=== PATIENT | female | born 1965 | race Caucasian/White ===

== ENCOUNTER 2016-11-02 14:36 | Inpatient (IN) | payer MEDICAID ==
[~2016-11-02] VITALS: Ht 160 cm; Wt 73.7 kg
[~2016-11-02 14:36] MED LIST: OLAN10TA3 PO; QUET200T PO
[2016-11-02] MEDS ORDERED: LORazepam 2 MG/ML VIAL ONE (14:48)
[2016-11-02 14:58] LABS: GLUCOSE,POINT OF CARE 230 MG/DL (70-110)
[2016-11-02] MEDS ORDERED: SODIUM CHLORIDE 0.9% 1,000 ML IV ONE ×3 (15:00→17:45)
[2016-11-02 15:14] LABS: BASOPHILS % (AUTO) 0.3 % (0.0-2.0); EOSINOPHILS % (AUTO) 0.4 % (1.0-6.0); HEMATOCRIT 28.4 % (36-46); HEMOGLOBIN 9.6 g/dL (12.0-16.0); LYMPHOCYTES # (AUTO) 0.4 K/uL (1.0-4.8); LYMPHOCYTES % (AUTO) 13.9 % (22.0-44.0); MEAN CORPUSCULAR HEMOGLOBIN 27.8 pg (26.0-34.0); MEAN CORPUSCULAR HGB CONC 33.6 G/dL (31.0-37.0); MEAN CORPUSCULAR VOLUME 83 fL (80-100); MONOCYTES # (AUTO) 0.2 K/uL (0.1-1.0); NEUTROPHILS # (AUTO) 2.3 K/uL (1.8-7.7); NEUTROPHILS % (AUTO) 78.4 % (40.0-70.0); RED BLOOD CELL COUNT(AUTO) 3.44 MIL/uL (4.00-5.20); RED CELL DISTRIBUTION WIDTH 19.4 % (11.5-14.5)
[2016-11-02] MEDS ORDERED: ONDANSETRON HCL 4 MG/2 ML VIAL IVP ONE (15:15)
[2016-11-02] MEDS ORDERED: LORazepam 2 MG/ML VIAL IVP ONE ×2 (15:15→15:45)
[2016-11-02 15:41] LABS: ANION GAP 17 mmol/L (8-16); CALCIUM, TOTAL 8.3 mg/dL (8.8-10.5); CARBON DIOXIDE 18 mmol/L (22-29); CHLORIDE 100 mmol/L (98-107); GLOMERULAR FILTR. RATE CALC 53 mL/min (>60); POTASSIUM 3.7 mmol/L (3.5-5.1); SODIUM SERUM 135 mmol/L (136-145); UREA NITROGEN, BLOOD 19 mg/dL (7-18)
[2016-11-02 15:42] LABS: PLATELET COUNT (AUTO) 33 K/uL (150-450); RBC MORPHOLOGY COMMENT ABNORMAL RBC MORPH
[2016-11-02 15:46] LABS: ALANINE AMINOTRANSFERASE 33 U/L (12-78); ALBUMIN 2.7 g/dL (3.4-5.0); ASPARTATE AMINOTRANSFERASE 72 U/L (15-37); BILIRUBIN,TOTAL 2.7 mg/dL (0.1-1.0); TOTAL PROTEIN, SERUM 9.7 g/dL (6.4-8.2)
[2016-11-02 16:08] LABS: SALICYLATE < 2.8 mg/dL (2.8-20.0)
[2016-11-02 16:18] LABS: ACETAMINOPHEN < 2 mcg/mL (10-30)
[2016-11-02] MEDS ORDERED: VANCOMYCIN HCL 1 GM/D5% WATER 200 ML IV ONE (16:45)
[2016-11-02 17:39] LABS: LACTIC ACID 7.7 mmol/L (0.4-2.0)
[2016-11-02] MEDS ORDERED: LACTULOSE 200 GM/300 ML RECTAL SOLUTION PR ONE (17:45)
[2016-11-02] MEDS ORDERED: ACETAMINOPHEN 650 MG/ISO-OSM 65 ML IV ONE (17:45)
[2016-11-02] MEDS ORDERED: ONDANSETRON HCL 4 MG/2 ML VIAL IVP PRN ×2 (18:45→21:00)
[2016-11-02] MEDS ORDERED: 0.9% SODIUM CHLORIDE 10 ML SYRINGE IVP PRN (18:45)
[2016-11-02] MEDS ORDERED: ACETAMINOPHEN 325 MG TABLET PO PRN ×2 (18:45→21:00)
[2016-11-02 18:54] LABS: REFLEX LACTIC ACID? YES YES
[2016-11-02] MEDS ORDERED: PIPERACILLIN/TAZO 3.375 GM/D5W 50 ML IV ONE (19:00)
[2016-11-02 19:10] LABS: CREATINE KINASE MB 5.1 ng/mL (0-5)
[2016-11-02 19:26] LABS: ABG A-A DIFF O2 463.5 mmHg (10-20.0); ABG BASE EXCESS -1.8 mmol/L (-2.0-3.0); ABG HCO3 23.1 mmol/L (22.0-26.0); ABG OXYHEMOGLOBIN 89.3 % (94.0-100.0); ABG PCO2 35 mmHg (35-45); TEMPERATURE, FAHRENHEIT, BG 98.7 FAHREN (96.0-98.6)
[2016-11-02 19:27] LABS: ALLEN TEST, BLOOD GAS Positive
[2016-11-02 20:00] VITALS: BP 141/82
[2016-11-02] MEDS ORDERED: SODIUM CHLORIDE 0.9% 250 ML IV ONE (20:39)
[2016-11-02] MEDS ORDERED: MAGNESIUM HYDROXIDE SUSPENSION 30 ML UDCUP PO PRN (21:00)
[2016-11-02] MEDS ORDERED: DEXTROSE 50%-WATER 25 GM/50 ML SYRINGE IVP PRN (21:00)
[2016-11-02] MEDS ORDERED: ALBUTEROL SULFATE 2.5 MG/0.5 ML NEB SOLUTION NEB PRN (21:00)
[2016-11-02] MEDS ORDERED: VANCOMYCIN HCL 1.5 GM in DEXTROSE 5%-WATER 250 ML IV ONE (21:15)
[2016-11-02] MEDS ORDERED: MAGNESIUM SULFATE 4 GM/WATER 100 ML IV PRN (21:15)
[2016-11-02] MEDS ORDERED: POTASSIUM CHLORIDE 20 MEQ ER TABLET PO PRN (21:15)
[2016-11-02] MEDS ORDERED: MAGNESIUM SULFATE 2 GM in DEXTROSE 5%-WATER 50 ML IV PRN (21:15)
[2016-11-02] MEDS ORDERED: MAGNESIUM OXIDE 400 MG TABLET PO PRN (21:15)
[2016-11-02] MEDS ORDERED: VANCOMYCIN HCL 500 MG in DEXTROSE 5%-WATER 100 ML IV ONE (21:30)
[2016-11-02 21:31] LABS: ALBUMIN 2.2 g/dL (3.4-5.0); MAGNESIUM 1.5 mg/dL (1.80-2.40)
[2016-11-02 23:07] LABS: INR 1.7 (0.9-1.1); PROTHROMBIN TIME 18.1 SEC (9.4-11.6)
[2016-11-03] VITALS: BP 120/72
[2016-11-03] MEDS: LACTULOSE 200 GM/300 ML RECTAL SOLUTION PR SCH ×3 (01:53→17:18)
[2016-11-03] MEDS: PIPERACILLIN/TAZO 3.375 GM/D5W 50 ML IV SCH ×4 (01:53→17:19)
[2016-11-03 04:00] VITALS: BP 112/63
[2016-11-03 05:10] LABS: EOSINOPHILS % (AUTO) 0.8 % (1.0-6.0); HEMATOCRIT 23.4 % (36-46); HEMOGLOBIN 7.9 g/dL (12.0-16.0); LYMPHOCYTES # (AUTO) 0.4 K/uL (1.0-4.8); LYMPHOCYTES % (AUTO) 15.5 % (22.0-44.0); MEAN CORPUSCULAR HEMOGLOBIN 28.2 pg (26.0-34.0); MEAN CORPUSCULAR HGB CONC 33.6 G/dL (31.0-37.0); MEAN CORPUSCULAR VOLUME 84 fL (80-100); MONOCYTES # (AUTO) 0.2 K/uL (0.1-1.0); MONOCYTES % (AUTO) 8.9 % (2.0-9.0); NEUTROPHILS # (AUTO) 1.7 K/uL (1.8-7.7); NEUTROPHILS % (AUTO) 74.8 % (40.0-70.0); PLATELET COUNT (AUTO) 27 K/uL (150-450); RED BLOOD CELL COUNT(AUTO) 2.79 MIL/uL (4.00-5.20); RED CELL DISTRIBUTION WIDTH 19.7 % (11.5-14.5); WHITE BLOOD COUNT (AUTO) 2.3 K/uL (4.5-11.0)
[2016-11-03 05:27] LABS: ALANINE AMINOTRANSFERASE 26 U/L (12-78); ALBUMIN 2.1 g/dL (3.4-5.0); ANION GAP 9 mmol/L (8-16); ASPARTATE AMINOTRANSFERASE 59 U/L (15-37); BILIRUBIN,TOTAL 2.5 mg/dL (0.1-1.0); CALCIUM, TOTAL 7.6 mg/dL (8.8-10.5); CARBON DIOXIDE 24 mmol/L (22-29); CHLORIDE 111 mmol/L (98-107); GLOMERULAR FILTR. RATE CALC > 60 mL/min (>60); INR 1.6 (0.9-1.1); POTASSIUM 3.2 mmol/L (3.5-5.1); PROTHROMBIN TIME 16.4 SEC (9.4-11.6); SODIUM SERUM 144 mmol/L (136-145); TOTAL PROTEIN, SERUM 7.6 g/dL (6.4-8.2); UREA NITROGEN, BLOOD 15 mg/dL (7-18)
[2016-11-03 05:31] LABS: HEMOGLOBIN A1C 7.7 % (4.5-6.2)
[2016-11-03 07:58] LABS: GLUCOSE,POINT OF CARE 85 MG/DL (70-110)
[2016-11-03 08:00] VITALS: BP 119/64
[2016-11-03 08:03] LABS: GLUCOSE,POINT OF CARE 125 MG/DL (70-110)
[2016-11-03 08:08] LABS: RBC MORPHOLOGY COMMENT ABNORMAL RBC MORPH
[2016-11-03] MEDS: VANCOMYCIN HCL 1.25 GM in DEXTROSE 5%-WATER 250 ML IV SCH ×2 (09:21→20:17)
[2016-11-03] MEDS: PANTOPRAZOLE SODIUM 40 MG/VIAL IVP SCH (09:22)
[2016-11-03] MEDS: POTASSIUM CHL 10 MEQ/WATER 50 ML IV PRN ×3 (09:24→10:34)
[2016-11-03] MEDS: INSULIN ASPART 100 UNITS/ML SQ PRN ×2 (11:45→17:30)
[2016-11-03 12:00] VITALS: BP 120/60
[2016-11-03 14:42] LABS: GLUCOSE,POINT OF CARE 112 MG/DL (70-110)
[2016-11-03 16:21] VITALS: BP 112/57
[2016-11-03] MEDS ORDERED: SODIUM CHLORIDE 0.9% IRRIG BTL 1,000 ML IRRIG ONE (16:22)
[2016-11-03 17:57] LABS: GLUCOSE COMMENT 1 Received Meds; GLUCOSE,POINT OF CARE 158 MG/DL (70-110)
[2016-11-03 20:03] VITALS: BP 117/65
[2016-11-04] VITALS (7 sets, daily range): BP systolic 99–122; BP diastolic 51–65
[2016-11-04] MEDS: PIPERACILLIN/TAZO 3.375 GM/D5W 50 ML IV SCH ×2 (00:03→06:00)
[2016-11-04] MEDS: LACTULOSE 200 GM/300 ML RECTAL SOLUTION PR SCH ×2 (00:03→08:00)
[2016-11-04 07:11] LABS: CALCIUM, TOTAL 7.2 mg/dL (8.8-10.5); CREATININE 1.02 mg/dL (0.60-1.30); POTASSIUM 3.5 mmol/L (3.5-5.1)
[2016-11-04 07:42] LABS: GLUCOSE,POINT OF CARE 143 MG/DL (70-110)
[2016-11-04] MEDS: PANTOPRAZOLE SODIUM 40 MG/VIAL IVP SCH (08:30)
[2016-11-04] MEDS: VANCOMYCIN HCL 1.25 GM in DEXTROSE 5%-WATER 250 ML IV SCH (09:35)
[2016-11-04 12:12] LABS: GLUCOSE,POINT OF CARE 134 MG/DL (70-110)
[2016-11-04] MEDS: LACTULOSE 20 GM/30 ML SOLUTION UDCUP PO SCH ×3 (12:17→23:11)
[2016-11-04 19:42] LABS: GLUCOSE,POINT OF CARE 120 MG/DL (70-110)
[2016-11-04] MEDS: SULFAMETHOX/TRIMETH DS 800-160 MG/TABLET PO SCH (19:58)
[2016-11-04] MEDS: INSULIN ASPART 100 UNITS/ML SQ PRN (20:26)
[2016-11-04 20:58] LABS: GLUCOSE COMMENT 1 Received Meds; GLUCOSE,POINT OF CARE 180 MG/DL (70-110)
[2016-11-05 03:45] VITALS: BP 133/71
[2016-11-05 07:04] LABS: ALANINE AMINOTRANSFERASE 24 U/L (12-78); ALBUMIN 1.9 g/dL (3.4-5.0); ANION GAP 8 mmol/L (8-16); ASPARTATE AMINOTRANSFERASE 67 U/L (15-37); BILIRUBIN,TOTAL 0.8 mg/dL (0.1-1.0); CALCIUM, TOTAL 7.4 mg/dL (8.8-10.5); CARBON DIOXIDE 23 mmol/L (22-29); CHLORIDE 108 mmol/L (98-107); CREATININE 0.91 mg/dL (0.60-1.30); GLOMERULAR FILTR. RATE CALC > 60 mL/min (>60); SODIUM SERUM 139 mmol/L (136-145); TOTAL PROTEIN, SERUM 7.5 g/dL (6.4-8.2); UREA NITROGEN, BLOOD 15 mg/dL (7-18)
[2016-11-05 07:09] LABS: BASOPHILS % (AUTO) 0.1 % (0.0-2.0); EOSINOPHILS # (AUTO) 0.01 K/uL (0.00-0.70); HEMATOCRIT 22.9 % (36-46); HEMOGLOBIN 7.6 g/dL (12.0-16.0); LYMPHOCYTES # (AUTO) 0.3 K/uL (1.0-4.8); LYMPHOCYTES % (AUTO) 22.9 % (22.0-44.0); MEAN CORPUSCULAR HEMOGLOBIN 27.7 pg (26.0-34.0); MEAN CORPUSCULAR HGB CONC 33.2 G/dL (31.0-37.0); MEAN CORPUSCULAR VOLUME 83 fL (80-100); MONOCYTES # (AUTO) 0.1 K/uL (0.1-1.0); MONOCYTES % (AUTO) 9.6 % (2.0-9.0); NEUTROPHILS # (AUTO) 0.9 K/uL (1.8-7.7); NEUTROPHILS % (AUTO) 66.5 % (40.0-70.0); PLATELET COUNT (AUTO) 36 K/uL (150-450); RED BLOOD CELL COUNT(AUTO) 2.75 MIL/uL (4.00-5.20); RED CELL DISTRIBUTION WIDTH 19.8 % (11.5-14.5); WHITE BLOOD COUNT (AUTO) 1.3 K/uL (4.5-11.0)
[2016-11-05 07:30] VITALS: BP 114/73
[2016-11-05 08:37] LABS: GLUCOSE,POINT OF CARE 129 MG/DL (70-110)
[2016-11-05] MEDS: LACTULOSE 20 GM/30 ML SOLUTION UDCUP PO SCH ×3 (08:40→23:50)
[2016-11-05] MEDS: SULFAMETHOX/TRIMETH DS 800-160 MG/TABLET PO SCH (08:40)
[2016-11-05] MEDS: PANTOPRAZOLE SODIUM 40 MG DR TABLET PO SCH (08:40)
[2016-11-05 09:35] LABS: RBC MORPHOLOGY COMMENT ABNORMAL RBC MORPH
[2016-11-05 11:43] VITALS: BP 112/63
[2016-11-05 12:23] LABS: GLUCOSE,POINT OF CARE 96 MG/DL (70-110)
[2016-11-05 15:36] VITALS: BP 112/59
[2016-11-05 16:35] LABS: HEPATITIS C RNA PCR log 10 6.479; HEPATITIS C RNA QNT 3013950 IU/mL
[2016-11-05] MEDS: INSULIN ASPART 100 UNITS/ML SQ PRN ×2 (17:17→20:15)
[2016-11-05 17:32] LABS: GLUCOSE COMMENT 1 Received Meds; GLUCOSE,POINT OF CARE 149 MG/DL (70-110)
[2016-11-05 19:40] VITALS: BP 139/87
[2016-11-05 21:52] LABS: GLUCOSE,POINT OF CARE 173 MG/DL (70-110)
[2016-11-05 23:32] VITALS: BP 130/78
[2016-11-06 04:50] VITALS: BP 140/90
[2016-11-06 06:38] LABS: BASOPHILS # (AUTO) 0.01 K/uL (0.00-0.20); BASOPHILS % (AUTO) 0.5 % (0.0-2.0); EOSINOPHILS # (AUTO) 0.01 K/uL (0.00-0.70); EOSINOPHILS % (AUTO) 1.24 % (1.0-6.0); HEMATOCRIT 22.3 % (36-46); HEMOGLOBIN 7.5 g/dL (12.0-16.0); LYMPHOCYTES # (AUTO) 0.3 K/uL (1.0-4.8); LYMPHOCYTES % (AUTO) 24.2 % (22.0-44.0); MEAN CORPUSCULAR HGB CONC 33.8 G/dL (31.0-37.0); MEAN CORPUSCULAR VOLUME 83 fL (80-100); MONOCYTES # (AUTO) 0.1 K/uL (0.1-1.0); MONOCYTES % (AUTO) 10.7 % (2.0-9.0); NEUTROPHILS # (AUTO) 0.7 K/uL (1.8-7.7); NEUTROPHILS % (AUTO) 63.4 % (40.0-70.0); PLATELET COUNT (AUTO) 22 K/uL (150-450); RED CELL DISTRIBUTION WIDTH 19.8 % (11.5-14.5); WHITE BLOOD COUNT (AUTO) 1.2 K/uL (4.5-11.0)
[2016-11-06 06:51] LABS: ANION GAP 8 mmol/L (8-16); CALCIUM, TOTAL 7.7 mg/dL (8.8-10.5); CARBON DIOXIDE 23 mmol/L (22-29); CHLORIDE 106 mmol/L (98-107); CREATININE 0.95 mg/dL (0.60-1.30); GLOMERULAR FILTR. RATE CALC > 60 mL/min (>60); POTASSIUM 3.9 mmol/L (3.5-5.1); SODIUM SERUM 137 mmol/L (136-145); UREA NITROGEN, BLOOD 13 mg/dL (7-18)
[2016-11-06 07:53] VITALS: BP 151/73
[2016-11-06] MEDS: LACTULOSE 20 GM/30 ML SOLUTION UDCUP PO SCH (08:59)
[2016-11-06] MEDS: PANTOPRAZOLE SODIUM 40 MG DR TABLET PO SCH (08:59)
[2016-11-06] MEDS ORDERED: LACT10SO8 PO (10:24)
[2016-11-06] MEDS ORDERED: MULTIVITAMINS WITH MINERALS, THERAPEUTIC TABLET PO SCH (10:30)
[2016-11-06] MEDS ORDERED: SOD FERRIC GLUC COMPLX/SUCROSE 125 MG in SODIUM CHLORIDE 0.9% 100 ML IV ONE (11:00)
[2016-11-06] MEDS ORDERED: SODIUM CHLORIDE 0.9% 100 ML ONE (11:53)
[2016-11-06 11:58] LABS: GLUCOSE,POINT OF CARE 132 MG/DL (70-110)
[2016-11-06 12:14] VITALS: BP 138/87
[2016-11-06] MEDS: INSULIN ASPART 100 UNITS/ML SQ PRN (12:30)
[2016-11-06 12:52] LABS: GLUCOSE COMMENT 1 Received Meds; GLUCOSE,POINT OF CARE 179 MG/DL (70-110)
[2016-11-06 21:09] LABS: HEPATITIS C GENO (PCR RFLX) 3
== END 2016-11-06 14:47 | disposition left against medical advice (07) | DRG 279 ==
LOC: EMS 14:37 → ICU 18:28 → UNDOADMIN 18:42 → 6N 11-03 12:50
PROVIDERS: ADMIT Internal Medicine; ATTEND Internal Medicine
DX: K72.90 Hepatic failure, unspecified without coma (principal); G92 Toxic encephalopathy; E43 Unspecified severe protein-calorie malnutrition; D61.818 Other pancytopenia; E87.2 Acidosis; D68.9 Coagulation defect, unspecified; R18.8 Other ascites; D69.6 Thrombocytopenia, unspecified; J84.10 Pulmonary fibrosis, unspecified; F20.9 Schizophrenia, unspecified; K74.60 Unspecified cirrhosis of liver; Z53.21 Procedure and treatment not carried out due to patient leaving prior to being seen by health care provider; F19.10 Other psychoactive substance abuse, uncomplicated; F17.210 Nicotine dependence, cigarettes, uncomplicated; R91.8 Other nonspecific abnormal finding of lung field; J44.9 Chronic obstructive pulmonary disease, unspecified; F31.9 Bipolar disorder, unspecified; L03.114 Cellulitis of left upper limb; Z78.1 Physical restraint status; Z91.19 Patient's noncompliance with other medical treatment and regimen; Z79.899 Other long term (current) drug therapy; Z68.28 Body mass index [BMI] 28.0-28.9, adult
CPT/HCPCS: 51702; 70450; 71250; 76705; 82805; 82962; 83036; 83605; 83735; 85651; 86140; 86900; 86901; 87040; 87081; 87340; 87389; 87522; 87902; 93005; 96365; 96366; 96368; 96375; 96376; 99291; C9113; G0480; G0481; J0131; J2060; J2405; J2543; J2916; J3370; J3475; J3480; J7030; J7050; J7060